=== PATIENT | male | born 1975 | race Two or more races ===

== ENCOUNTER 2020-11-08 19:12 | Emergency (ER) | payer SELFPAY ==
[~2020-11-08] VITALS: Ht 172.7 cm; Wt 45.0 kg
[2020-11-08 19:26] VITALS: BP 173/81
[2020-11-08] MEDS ORDERED: HYDR25SU18 RC (20:50)
[2020-11-08] MEDS ORDERED: SENN-121 PO (20:50)
--- NOTE | 2020-11-08 20:51 | PHYS DOC ---
Past Medical History Past Medical History: No Pertinent History Past Surgical History: Other Additional Past Surgical Histo: Lung surgery Smoking Status: Never Smoker Alcohol Use: None Drug Use: None General Adult EDM: Chief Complaint: ABSCESS HPI: HPI: Patient is a 45 year old male who presents to [facility] ED with complaints of possible abscess in perineum. He states that he first noticed a bulging mass between his scrotum and rectum a few days ago. He's had a similar case before that resolved with time. He reports that he has ruptured the mass multiple times resulting in discharge of blood and yellow fluid. Rupture provides immediate pain relief which allows him to sleep. He has used antiseptics and self rupture for symptom management. Pressure and movements worsen pain. He denies any fevers, bowel, or urinary changes. 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 Patient reports history of constipation and increased strain with bowel movements. His primary concern is whether he needs an antibiotic prescription or not. Review of Systems: Review of Systems: Constitutional: Denies fever or chills Eyes: Denies redness or eye pain HENT: Denies nasal congestion or sore throat Respiratory: Denies cough or shortness of breath Cardiovascular: Denies chest pain or palpitations GI: Denies abdominal pain, nausea, or vomiting, reports constipation : Denies dysuria or hematuria Musculoskeletal: Denies back pain or joint pain Integument: Reports bulging/bleeding mass in perineum Neurologic: Denies headache, focal weakness or sensory changes Complete systems were reviewed and found to be within normal limits, except as documented in this note. Heart Score: C/O Chest Pain: N/A Family History: Family History: No pertinent family history Allergies: Allergies: Allergies Coded Allergies Type Severity Reaction Last Updated Verified No Known Drug Allergies 11/08/20 No Physical Exam: PE: Constitutional: Well developed, well nourished, no acute distress, non-toxic appearance HENT: Normocephalic, atraumatic Eyes: PERRL, EOMI, conjunctiva normal, no discharge Neck: Normal range of motion, no tenderness, supple Lungs & Thorax: No respiratory distress, equal chest rise and fall Abdomen: Soft, no tenderness Skin: Dried bloody streaks present in perineum and rectal area, no noted induration or mass around rectum Back: No tenderness, no CVA tenderness Extremities: No tenderness, ROM intact, no edema Neurologic: Alert and oriented X 3, normal motor function, normal sensory function, no focal deficits noted Psychologic: Affect normal, judgment normal Current Patient Data: Labs: None obtained Vital Signs: Vital Signs Date Time Temp Pulse Resp B/P (MAP) Pulse Ox O2 Delivery O2 Flow Rate FiO2 11/08/20 19:26 98.0 87 13 173/81 (111) 97 Room Air 98.0 EKG: EKG: Not obtained Radiology/Procedures: Radiology/Procedures: None obtained Course & Med Decision Making: Course & Med Decision Making Patient is a 45 year old male who presents to [facility] ED with complaints of possible abscess in perineum. Physical exam findings and history were more indicative of possible ruptured thrombosed hemorrhoid than abscess or cyst. Patient was advised on importance of keeping wound area clean, washing area after all bowel movements, and use of SITZ baths for treatment. Patient was provided colace prescription in order to soften stools and prevent straining during bowel movements. Anusol prescription was provided if hemorrhoids recur. Patient stable for discharge with outpatient follow-up with PCP. Discussed findings and plan with patient, who acknowledges understanding and agreement. Pertinent Labs and Imaging studies reviewed. (See chart for details) Osorio Disclaimer: Osorio Disclaimer: This electronic medical record was generated, in whole or in part, using a voice recognition dictation system. Departure Departure Impression: Primary Impression: Thrombosed external hemorrhoid Disposition: 01 HOME SELF CARE/HOMELESS Condition: STABLE Patient Instructions: Hemorrhoidectomy, Care After, Hemorrhoids, [id number] Additional Instructions: Keep area clean and dry. Clean rectum after any bowel movement. May also use over the counter SITZ bath salts. Use as directed. Scripts Sennosides/Docusate Sodium (Colace 2-in-1 Tablet) 1 Each Tablet 1 TAB PO QHS for 30 Days, #30 TAB 0 Refills Prov: DEACON CASTREJON DO 11/08/20 Hydrocortisone Acetate (ANUSOL-HC) 25 Mg Supp.rect 1 SUPP RC BID for 7 Days, #14 SUPP 0 Refills Prov: DEACON CASTREJON DO 11/08/20 DEACON CASTREJON DO Nov 08, 2020 20:51
== END 2020-11-08 21:05 | disposition home or self-care (01) ==
LOC: ER 19:12
DX: K64.5 Perianal venous thrombosis (principal); Z98.890 Other specified postprocedural states
CPT/HCPCS: 99283